=== PATIENT | male | born 1945 | race Caucasian/White ===

== ENCOUNTER 2018-03-13 16:36 | Observation (INO) | payer OTHER ==
[~2018-03-13] VITALS: Ht 170.2 cm; Wt 100.5 kg
[~2018-03-13 16:36] MED LIST: ASPIR-TRIN325 M1; ASPIRIN BUFFER325 MG PO; ASPIRIN325 MG PO; ATACAND16 MG PO; ATACAND4 MG PO; ATARAX,VISTARIL25 MG PO; ATARAX,VISTARIL50 MG PO; Aspirin E.C. PO; Atacand PO; CIPRO500 MG PO; COMBIVENT RESPIM4 GM IH; COZAAR100 MG PO; DAILY VALUE1 EACH PO; DAILY VITAMIN1 EAC8 PO; DOXYCYCLINE HY100 MG; DOXYCYCLINE MO100 MG PO; EFFEXOR XR150 MG PO; FLAGYL500 MG PO; HYDROXYZINE HCL50 M1 PO; LIPITOR20 MG PO; LOPRESSOR25 MG PO; LORAZEPAM0.5 MG PO; Levaquin PO; METFORMIN HCL500 M1 PO; MULTIVITAMIN1 EAC2 PO; PEPCID40 MG PO; PREDNISONE20 MG PO; PROAIR HFA8.5 GM IH; SPIRIVA1 INHALATI; SPIRIVA1 INHALATI IH; TETRACYCLINE H250 MG PO; TYLENOL WITH C1 EACH PO; VESICARE10 MG; VESICARE10 MG PO; ZYRTEC10 M3 PO
[2018-03-13 18:15] LABS: BASOPHIL (%) 0.4 % (0-1); BASOPHIL COUNT 0.1 K/uL (0-0.1); EOSINOPHIL (%) 4.2 % (0-5); EOSINOPHIL COUNT 0.5 K/uL (0-0.3); HEMOGLOBIN 13.3 G/DL (12.5-16.6); IMMATURE GRANULOCYTE (%) 0.5 % (0.0-0.7); LYMPHOCYTE (%) 12.5 % (15-42); LYMPHOCYTE COUNT 1.6 K/uL (1.0-2.8); MCH 30.2 PG (29.0-34.0); MCHC 34.1 G/DL (30.0-36.0); MCV 88.6 FL (86-99); MONOCYTE (%) 8.3 % (3-12); MONOCYTE COUNT 1.1 K/uL (0-0.8); NEUTROPHIL (%) 74.1 % (45-76); NEUTROPHIL COUNT 9.4 K/uL (1.8-6.4); PLATELET COUNT 305 K/uL (156-360); RBC DIS.WIDTH-CV 15.7 % (11.8-14.6); RBC DIS.WIDTH-SD 51.4 % (39-53); WHITE BLOOD COUNT 12.6 K/uL (4.1-10.2)
[2018-03-13 18:25] LABS: CHLORIDE 106 mEq/L (99-109); POTASSIUM 3.6 mEq/L (3.7-5.4); SODIUM 142 mEq/L (136-147)
[2018-03-13 18:27] LABS: GLUCOSE 108 mg/dL (70-99)
[2018-03-13 18:31] LABS: CREATININE 1.1 mg/dL (0.6-1.3); GFR ESTIMATE (CALCULATED) > 59 mL/min/ (58.99-99999)
[2018-03-13 18:32] LABS: UREA NITROGEN (BUN) 22 mg/dL (9-23)
[2018-03-13 18:36] LABS: TROP-I INTERPRETATION NEGATIVE; TROPONIN-I < 0.01 ng/mL (0.0-0.30)
[2018-03-13 20:17] VITALS: BP 129/61
[2018-03-13] MEDS ORDERED: VESICARE5 MG PO (21:03)
[2018-03-13] MEDS ORDERED: AMLODIPINE BES2.5 MG PO (21:04)
[2018-03-13] MEDS ORDERED: OXYBUTYNIN CHLO10 MG PO (21:05)
[2018-03-13] MEDS ORDERED: HYDROCHLOROTH12.5 M3 PO (21:05)
[2018-03-13] MEDS ORDERED: VENLAFAXINE HC150 M1 PO (21:05)
[2018-03-13] MEDS ORDERED: ATORVASTATIN CA20 MG PO (21:05)
[2018-03-14 00:29] VITALS: BP 133/68
[2018-03-14 01:10] LABS: TROP-I INTERPRETATION NEGATIVE; TROPONIN-I < 0.01 ng/mL (0.0-0.30)
[2018-03-14 04:16] VITALS: BP 148/68
[2018-03-14 04:34] LABS: ALBUMIN 3.6 g/dL (3.2-4.8)
[2018-03-14 04:37] LABS: TOTAL PROTEIN 6.1 g/dL (6.4-8.3)
[2018-03-14 04:39] LABS: TOTAL BILIRUBIN 0.2 mg/dL (0.0-1.0)
[2018-03-14 04:40] LABS: ALKALINE PHOSPHATASE 112 IU/L (3-129)
[2018-03-14 04:43] LABS: ALT (GPT) 17 IU/L (3-49); AST (GOT) 13 IU/L (2-34); DIRECT BILIRUBIN 0.1 mg/dL (0.0-0.3)
[2018-03-14 04:44] LABS: LIPASE 38 U/L (1.0-51.0)
[2018-03-14 05:47] LABS: TROP-I INTERPRETATION NEGATIVE; TROPONIN-I < 0.01 ng/mL (0.0-0.30)
[2018-03-14 08:25] VITALS: BP 170/58
[2018-03-14 09:03] LABS: HEMATOCRIT 40.1 % (38.0-50.0); HEMOGLOBIN 13.1 G/DL (12.5-16.6); MCH 29.6 PG (29.0-34.0); MCHC 32.7 G/DL (30.0-36.0); MCV 90.5 FL (86-99); NRBC (%) 0.2 /100 WBC (0-0); PLATELET COUNT 299 K/uL (156-360); RBC DIS.WIDTH-CV 15.9 % (11.8-14.6); RED BLOOD COUNT 4.43 M/uL (4.00-5.50); WHITE BLOOD COUNT 10.7 K/uL (4.1-10.2)
[2018-03-14 09:20] LABS: CHLORIDE 108 MEQ/L (99-109); CREATININE 0.7 MG/DL (0.6-1.3); GFR ESTIMATE (CALCULATED) > 59 mL/min/ (58.99-99999); GLUCOSE 123 mg/dL (70-99); POTASSIUM 4.1 MEQ/L (3.7-5.4); SODIUM 143 MEQ/L (136-147); UREA NITROGEN (BUN) 21 mg/dL (9-23)
[2018-03-14 11:14] LABS: APPEARANCE CLEAR ((CLEAR)); BILIRUBIN NEGATIVE; BLOOD NEGATIVE; COLOR YELLOW ((YELLOW)); GLUCOSE (STRIP) NEGATIVE; KETONES NEGATIVE; LEUKOCYTES NEGATIVE; NITRITE NEGATIVE; PROTEIN (STRIP) NEGATIVE; UROBILINOGEN 0.2 MG/DL (0.2-1.0)
[2018-03-14 12:04] VITALS: BP 133/68
== END 2018-03-14 12:44 | disposition home or self-care (01) ==
LOC: EME 16:36 → EDOF 19:17 → ENRESERV 19:28 → 4SOUTH 20:08
PROVIDERS: Emergency Medicine; Hospitalist; Internal Medicine; Physician Assistant
DX: R07.9 Chest pain, unspecified (principal); I10 Essential (primary) hypertension; E11.40 Type 2 diabetes mellitus with diabetic neuropathy, unspecified; E78.5 Hyperlipidemia, unspecified; F17.200 Nicotine dependence, unspecified, uncomplicated; J44.9 Chronic obstructive pulmonary disease, unspecified; E66.9 Obesity, unspecified; Z68.34 Body mass index [BMI] 34.0-34.9, adult; D86.9 Sarcoidosis, unspecified; F32.9 Major depressive disorder, single episode, unspecified; G47.33 Obstructive sleep apnea (adult) (pediatric); D72.828 Other elevated white blood cell count; L73.2 Hidradenitis suppurativa; Z90.49 Acquired absence of other specified parts of digestive tract; Z82.49 Family history of ischemic heart disease and other diseases of the circulatory system; Z80.1 Family history of malignant neoplasm of trachea, bronchus and lung
CPT/HCPCS: 71045; 80048; 80076; 81003; 82948; 83690; 83735; 84484; 85025; 85027; 93005; 99281; 99285; G0378; J1644; Q0177